=== PATIENT | male | born 1985 | race Caucasian/White ===

== ENCOUNTER 2017-06-11 16:32 | Emergency (ER) | payer MEDICAID ==
[2017-06-11 16:41] VITALS: BP 131/83; PULSE 79; RESP 19; TEMP 97.8; O2SAT 100
--- NOTE | 2017-06-11 17:03 | ED PDOC ---
HPI: Male Pain Time Seen by Provider: 06/11/17 16:57 Chief Complaint (Nursing): Male Genitourinary Chief Complaint (Provider): dysuria History Per: Patient History/Exam Limitations: no limitations Onset/Duration Of Symptoms: Days (x6) Current Symptoms Are (Timing): Still Present Quality Of Discomfort: Burning (discomfort) Associated Symptoms: denies: Fever, Chills, Back Pain Additional Complaint(s): August Jones is a 32 year old male who presents to the emergency department complaining of dysuria x 6 days. He describes the pain as a burning sensation and discomfort. Patient states he had his urine tested on Monday for STD but doesn't have results yet. Patient is sexually active but uses protection. He denies any fever, chills, back pain or other medical complaints. PMD: None provided. Past Medical History Reviewed: Historical Data, Nursing Documentation, Vital Signs Vital Signs: Last Vital Signs Temp 97.8 F 06/11/17 16:36 Pulse 79 06/11/17 16:36 Resp 19 06/11/17 16:36 BP 131/83 06/11/17 16:36 Pulse Ox 100 06/11/17 16:36 - Medical History PMH: No Chronic Diseases - Surgical History Surgical History: No Surg Hx - Family History Family History: States: No Known Family Hx - Living Arrangements Living Arrangements: With Family - Social History Current smoker - smoking cessation education provided: Yes (occasionally) Alcohol: Occasional Drugs: Denies - Allergies Allergies/Adverse Reactions: Allergies Allergy/AdvReac Type Severity Reaction Status Date / Time No Known Allergies Allergy Verified 06/11/17 16:36 Review of Systems ROS Statement: Except As Marked, All Systems Reviewed And Found Negative Constitutional: Negative for: Fever, Chills Genitourinary Male: Positive for: Dysuria. Negative for: Hematuria, Penile Discharge, Scrotal Pain, Rash, Penile Pain Musculoskeletal: Negative for: Back Pain Physical Exam - Reviewed Nursing Documentation Reviewed: Yes Vital Signs Reviewed: Yes - Physical Exam Appears: Positive for: Well, Non-toxic, No Acute Distress Head Exam: Positive for: ATRAUMATIC, NORMAL INSPECTION, NORMOCEPHALIC Skin: Positive for: Normal Color, Warm, Dry Eye Exam: Positive for: Normal appearance, EOMI, PERRL Neck: Positive for: Painless ROM Cardiovascular/Chest: Positive for: Regular Rate, Rhythm. Negative for: Murmur Respiratory: Positive for: Normal Breath Sounds. Negative for: Respiratory Distress Gastrointestinal/Abdominal: Positive for: Normal Exam, Soft. Negative for: Tenderness, Guarding, Rebound Back: Positive for: Normal Inspection. Negative for: L CVA Tenderness, R CVA Tenderness, Vertebral Tenderness Extremity: Positive for: Normal ROM. Negative for: Deformity, Swelling Neurologic/Psych: Positive for: Alert, Oriented - Laboratory Results Urine dip results: Negative for: Leukocyte Esterase, Blood, Nitrate, Ketones, Glucose, Bilirubin, Protein - ECG O2 Sat by Pulse Oximetry: 100 (RA) Pulse Ox Interpretation: Normal Medical Decision Making Medical Decision Makin32 year old male with dysuria Initial Plan: --Urine dipstick Patient was tested at an outside facility for Gonorrhea and chlamydia and will receive results tomorrow. He is asking for prophylactic treatment at this time. Patient was medicated with 250 mg IM cetriaxone and 1 gram PO zithromax. Urine dip negative, culture sent. Patient was instructed to follow up with clinic were he obtained testing. Scribe Attestation: Documented by Getachew Mac, acting as a scribe for Holly Grady PA-C Provider Scribe Attestation: All medical record entries made by the Scribe were at my direction and personally dictated by me. I have reviewed the chart and agree that the record accurately reflects my personal performance of the history, physical exam, medical decision making, and the department course for this patient. I have also personally directed, reviewed, and agree with the discharge instructions and disposition. Disposition - Clinical Impression Clinical Impression: Possible exposure to STD - Patient ED Disposition Is Patient to be Admitted: No - Disposition Referrals: [facility] [Outside] Disposition: Routine/Home Disposition Time: 17:38 Condition: STABLE Additional Instructions: Follow up on your test results. Instructions: STD Prevention, Sexually-Transmitted Diseases Forms: [facility] (Serbian)
[2017-06-11] MEDS ORDERED: cefTRIAXone (Rocephin) 250 mg Inj IM STA (17:34)
[2017-06-11] MEDS ORDERED: cefTRIAXone (Rocephin) 250 mg Inj ONE (17:47)
== END 2017-06-11 18:04 | disposition home or self-care (01) ==
LOC: SUPCPDRO 16:32 → H.ER 16:32
DX: Z20.2 Contact with and (suspected) exposure to infections with a predominantly sexual mode of transmission (principal); F17.200 Nicotine dependence, unspecified, uncomplicated
CPT/HCPCS: 87086; 96372; 99282; J0696